=== PATIENT | female | born 1990 | race Caucasian/White ===

== ENCOUNTER 2016-10-20 19:39 | Emergency (ER) | payer OTHER ==
[2016-10-20 22:22] VITALS: BP 129/88
== END 2016-10-20 22:22 | disposition home or self-care (01) ==
LOC: ED 19:39
DX: L60.0 Ingrowing nail (principal)
CPT/HCPCS: J2001

== ENCOUNTER 2016-12-07 08:04 | Emergency (ER) | payer OTHER ==
[2016-12-07 11:30] VITALS: BP 87/56
== END 2016-12-07 11:30 | disposition home or self-care (01) ==
LOC: ED 08:04
DX: N39.0 Urinary tract infection, site not specified (principal)
CPT/HCPCS: J1885; J7030

== ENCOUNTER 2019-04-08 16:07 | Emergency (ER) | payer OTHER ==
[~2019-04-08] VITALS: Ht 167.6 cm; Wt 89.8 kg
[2019-04-08 16:09] VITALS: Ht 167.6 cm; Wt 89.8 kg
[2019-04-08 18:00] VITALS: BP 106/65
== END 2019-04-08 18:00 | disposition home or self-care (01) ==
LOC: ED 16:07
DX: J06.9 Acute upper respiratory infection, unspecified (principal)